=== PATIENT | male | born 1975 | race Hispanic/Latino ===

== ENCOUNTER 2017-03-15 17:02 | Emergency (ER) | payer OTHER ==
[2017-03-15 18:04] LABS: Basophils # (Auto) 0.1 K/mm3 (0.0-0.1); Basophils % (Auto) 0.5 % (0.0-1.8); Eosinophils % (Auto) 0.1 % (0.0-4.3); Hematocrit 43.4 % (35.5-45.6); Lymphocytes # (Auto) 1.2 K/mm3 (1.2-5.4); Lymphocytes % (Auto) 7.7 % (13.4-35.0); Mean Corpuscular HGB Conc 35 % (32-34); Mean Corpuscular Hemoglobin 32 pg (28-32); Mean Corpuscular Volume 93 fl (84-94); Monocytes # (Auto) 0.5 K/mm3 (0.0-0.8); Platelet Count 271 K/mm3 (140-440); Red Blood Count 4.67 M/mm3 (3.65-5.03); Red Cell Distribution Width 13.3 % (13.2-15.2)
[2017-03-15 18:25] LABS: Alanine Aminotransferase 22 units/L (7-56); Albumin 4.8 g/dL (3.9-5); BUN/Creatinine Ratio 23; Blood Urea Nitrogen 23 mg/dL (9-20); Calcium 9.8 mg/dL (8.4-10.2); Hemolysis Index 18
[2017-03-15 18:52] LABS: Bacteria,Urine 1+ /HPF (Negative); Bilirubin,Urine NEG (Negative); Blood,Urine MOD (Negative); Color,Urine Yellow (Yellow); Mucus,Urine FEW /HPF; Nitrite,Urine NEG (Negative); Urobilinogen,Urine < 2.0 mg/dL (<2.0)
[2017-03-16] MEDS ORDERED: TORADOL IV ONE (06:53)
[2017-03-16] MEDS ORDERED: ZOFRAN IV ONE (06:53)
[2017-03-16] MEDS ORDERED: NACL 0.9% 1000 ML 1,000 ML IV ONE (06:53)
--- NOTE | 2017-03-16 07:40 | Cat Scan Report ---
FINAL REPORT EXAM: CT ABDOMEN PELVIS WO CON HISTORY: left flank pain, hematuria TECHNIQUE: CT images obtained through the Abdomen and Pelvis without contrast. Transaxial,coronal and sagittal reformats are provided. PRIORS: None. FINDINGS: Imaged intrathoracic contents are unremarkable. Mild left hydronephrosis due to a 5 millimeter proximal ureteral obstructing stone on axial series 3, image 77. Nonobstructive nephrolithiasis measures up to 3 millimeters in the left collecting system and 2 millimeters in the right collecting system. No right hydroureteronephrosis. No stones within or near the urinary bladder. Pelvic phleboliths are noted. Partially exophytic hypodense left hepatic mass on axial series 3, image 31 measures up to 6.2 cm. Similar in attenuation in the peripheral right hepatic lobe on axial image 56 there is a 3.5 centimeter mass. The gallbladder, pancreas, spleen, and adrenal glands demonstrate a normal noncontrast appearance. Hollow enteric organs are normal in course and caliber. Appendix is normal. Sigmoid diverticulosis without surrounding inflammatory findings. No intra-abdominal free air/fluid or lymphadenopathy. Aorta is normal in course and caliber. Superficial soft tissues are unremarkable. No acute or aggressive appearing skeletal findings. IMPRESSION: Moderate left hydronephrosis due to a proximal ureteral obstructing stone measuring up to 5 millimeters. There are additional nonobstructive stones in the right and left collecting system measuring up to 3 millimeters as detailed above. Indeterminate right and left hepatic masses measuring up to 3.5 cm and 6.2 cm, respectively. Differential diagnosis includes both benign and malignant entities. Follow-up routine MRI with contrast is recommended for further evaluation. Notification initiated via [employer] sales support coordinator immediately following this dictation on 03/16/2017.
--- NOTE | 2017-03-16 08:11 | Emergency Department Report ---
ED Abdominal Pain HPI - General Chief Complaint: Abdominal Pain Stated Complaint: FLANK PAIN Time Seen by Provider: 03/16/17 06:49 Source: patient, family Mode of arrival: Stretcher Limitations: No Limitations - History of Present Illness Initial Comments: 41-year-old male with a past medical history of hypertension presents to the ED with complaints of left flank pain 2 weeks. Pain is described as intermittent , sharp, moderate in intensity. Patient became severe yesterday causing him to fall to the floor with associated nausea and one episode of vomiting. Patient denies dysuria, hematuria, or fever. Denies previous history of passing a kidney stone but was informed he did have a stone in his kidney on previous imaging studies. Patient takes Naprosyn for chronic left knee arthritis Severity scale (0 -10): 7 - Related Data Previous Rx's Medication Instructions Recorded Last Taken Type Ondansetron [Zofran Odt] 4 mg PO Q8HR PRN #20 tab.rapdis 03/16/17 Unknown Rx Tamsulosin [Flomax] 0.4 mg PO QDAY #7 cap 03/16/17 Unknown Rx traMADol [Ultram 50 MG tab] 50 mg PO Q6HR PRN #20 tablet 03/16/17 Unknown Rx Allergies Allergy/AdvReac Type Severity Reaction Status Date / Time hydrocodone Allergy Unknown Verified 03/15/17 17:41 ED Review of Systems ROS: Stated complaint: FLANK PAIN Other details as noted in HPI Comment: All other systems reviewed and negative Other: Constitutional: No fevers chills Eyes: No eye pain visual changes ENT: No ear pain or throat pain Neck: Denies pain Respiratory: Denies cough wheezing shortness of breath Cardiovascular: Denies chest pain, palpitations, syncope GI: As per HPI : Denies dysuria Musculoskeletal: Denies back pain, joint swelling Skin: Denies rash, lesions, erythema Neurologic: Denies headache, numbness, weakness Psychiatric: Denies suicidal ideation, hallucinations ED Past Medical Hx - Past Medical History Hx Hypertension: Yes - Medications Home Medications: Home Medications Medication Instructions Recorded Confirmed Last Taken Type Ondansetron [Zofran Odt] 4 mg PO Q8HR PRN #20 tab.rapdis 03/16/17 Unknown Rx Tamsulosin [Flomax] 0.4 mg PO QDAY #7 cap 03/16/17 Unknown Rx traMADol [Ultram 50 MG tab] 50 mg PO Q6HR PRN #20 tablet 03/16/17 Unknown Rx ED Physical Exam - General Limitations: No Limitations - Other Other exam information: General: No limitations, patient is alert in no acute distress Head exam: Atraumatic, normocephalic Eyes exam: Normal appearance ENT: Moist mucous membrane, normal oropharynx Neck exam: Normal inspection, full range of motion, no meningismus nontender Respiratory exam: Clear to auscultation bilateral, no wheezes, rales, crackles Cardiovascular: Normal rate and rhythm, normal heart sounds Abdomen: Soft, nondistended, and nontender, with normal bowel sounds, no rebound, or guarding Extremity: Full range of motion, left knee lateral bony protrusion that is chronic as per patient Back: Normal Inspection, full range of motion, mild left flank tenderness Neurologic: Alert, oriented x3, cranial nerves intact, no motor or sensory deficit Psychiatric: normal affect, normal mood Skin: Warm, dry, intact ED Course Vital Signs 03/15/17 03/16/17 03/16/17 17:35 01:01 05:57 Temperature 97.3 F L 97.8 F Pulse Rate 83 64 Respiratory 16 18 Rate Blood Pressure 122/74 124/81 137/72 O2 Sat by Pulse 99 100 Oximetry 03/16/17 03/16/17 03/16/17 06:00 06:21 06:40 Temperature Pulse Rate Respiratory Rate Blood Pressure 130/81 127/76 120/72 O2 Sat by Pulse Oximetry 03/16/17 06:42 Temperature Pulse Rate Respiratory 20 Rate Blood Pressure O2 Sat by Pulse 98 Oximetry - Reevaluation(s) Reevaluation #1: 03/16/17 08:12 Patient received Toradol, Zofran, and no masses Reevaluation #2: 03/16/17 10:15 Patient observed after receiving tramadol and no allergic reaction noted. - Consultations Consultation #1: 03/16/17 08:[address] Alex on-call urologist. Recommend patient to come to the office today after discharge for evaluation ED Medical Decision Making - Lab Data Result diagrams: 03/15/17 17:46 03/15/17 17:46 Lab Results 03/15/17 03/15/17 03/15/17 Range/Units 17:46 17:46 18:05 WBC 15.5 H (4.5-11.0) K/mm3 RBC 4.67 (3.65-5.03) M/mm3 Hgb 15.0 (11.8-15.2) gm/dl Hct 43.4 (35.5-45.6) % MCV 93 (84-94) fl MCH 32 (28-32) pg MCHC 35 H (32-34) % RDW 13.3 (13.2-15.2) % Plt Count 271 (140-440) K/mm3 Lymph % (Auto) 7.7 L (13.4-35.0) % [place] % (Auto) 3.0 (0.0-7.3) % Eos % (Auto) 0.1 (0.0-4.3) % Baso % (Auto) 0.5 (0.0-1.8) % Lymph # 1.2 (1.2-5.4) K/mm3 [place] # 0.5 (0.0-0.8) K/mm3 Eos # 0.0 (0.0-0.4) K/mm3 Baso # 0.1 (0.0-0.1) K/mm3 Seg Neutrophils % 88.7 H (40.0-70.0) % Seg Neutrophils # 13.7 H (1.8-7.7) K/mm3 Sodium 140 (137-145) mmol/L Potassium 3.7 (3.6-5.0) mmol/L Chloride 100.4 (98-107) mmol/L Carbon Dioxide 23 (22-30) mmol/L Anion Gap 20 mmol/L BUN 23 H (9-20) mg/dL Creatinine 1.0 (0.8-1.5) mg/dL Estimated GFR > 60 ml/min BUN/Creatinine Ratio 23 % Glucose 106 H (75-100) mg/dL Calcium 9.8 (8.4-10.2) mg/dL Total Bilirubin 0.20 (0.1-1.2) mg/dL AST 15 (5-40) units/L ALT 22 (7-56) units/L Alkaline Phosphatase 70 (35-129) units/L Total Protein 7.0 (6.3-8.2) g/dL Albumin 4.8 (3.9-5) g/dL Albumin/Globulin Ratio 2.2 % Urine Color Yellow (Yellow) Urine Turbidity Clear (Clear) Urine pH 7.0 (5.0-7.0) Ur Specific [place] 1.024 (1.003-1.030) Urine Protein 30 mg/dl (Negative) mg/dL Urine Glucose (UA) Neg (Negative) mg/dL Urine Ketones Neg (Negative) mg/dL Urine Blood Mod (Negative) Urine Nitrite Neg (Negative) Urine Bilirubin Neg (Negative) Urine Urobilinogen < 2.0 (<2.0) mg/dL Ur Leukocyte Esterase Neg (Negative) Urine WBC (Auto) 3.0 (0.0-6.0) /HPF Urine RBC (Auto) 34.0 (0.0-6.0) /HPF Urine Bacteria (Auto) 1+ (Negative) /HPF Urine Mucus Few /HPF - Radiology Data Radiology results: report reviewed CT abdomen and pelvis noncontrast clear to moderate left hydronephrosis due to proximal ureteral obstructing stone measuring up to 5 mm. There is additional nonobstructive stones in the right and left collecting system measuring up to 3 mm. Indeterminate right left hepatic masses measuring 2.5 cm and 6.2 cm respectively. - Medical Decision Making Patient states he is allergic to hydrocodone because he took it for dental work he broke out in a sweat. He denies hives, rash, or difficulty breathing. Patient artery takes - Differential Diagnosis renal colic, UTI, diverticulitis Critical Care Time: No Critical care attestation.: If time is entered above; I have spent that time in minutes in the direct care of this critically ill patient, excluding procedure time. ED Disposition Clinical Impression: Renal colic on left side, Hydronephrosis, Bilateral nephrolithiasis Disposition: DC-01 TO HOME OR SELFCARE Is pt being admited?: No Condition: Stable Instructions: Renal Colic (ED), How to Strain Your Urine (ED), Kidney Stones ( ED) Additional Instructions: Take the medication as needed for pain. Continue Naprosyn in addition to tramadol. Follow up with the urologist today upon discharge. Return is symptoms worsen as indicated by discharge instructions Prescriptions: Ondansetron [Zofran Odt] 4 mg PO Q8HR PRN #20 tab.rapdis PRN Reason: Nausea And Vomiting Tamsulosin [Flomax] 0.4 mg PO QDAY #7 cap traMADol [Ultram 50 MG tab] 50 mg PO Q6HR PRN #20 tablet PRN Reason: Pain Referrals: CYNDY BARBER MD [Staff Physician] - 03/16/17 Time of Disposition: 10:17
[2017-03-16] MEDS ORDERED: ULTRAM PO ONE (08:42)
[2017-03-16 10:49] VITALS: BP 126/81
== END 2017-03-16 10:50 | disposition home or self-care (01) ==
LOC: ED 17:02
DX: N13.2 Hydronephrosis with renal and ureteral calculous obstruction (principal); I10 Essential (primary) hypertension; Z88.5 Allergy status to narcotic agent
CPT/HCPCS: 36415; 74176; 80053; 81001; 85025; 96361; 96374; 96375; 99284; J1885; J2405; J7030

== ENCOUNTER 2017-03-23 13:58 | Day surgery (SDC) | payer OTHER ==
[~2017-03-23 13:58] MED LIST: NACL 0.9% 1000 ML 1,000 ML IV SCH; PEPCID PO NR; VERSED IV NR
[2017-03-23] MEDS ORDERED: ANCEF/STERILE WATER 2 GM/20 ML IV NR (14:20)
[2017-03-23] MEDS ORDERED: PERCOCET 5/325 PO PRN (14:51)
[2017-03-23] MEDS ORDERED: MORPHINE IV PRN (14:51)
[2017-03-23] MEDS ORDERED: ZOFRAN IV PRN (14:51)
--- NOTE | 2017-03-23 14:51 | Anesthesia Consultation ---
Anesthesia Consult and Med Hx Date of service: 03/23/17 - Airway Anesthetic Teeth Evaluation: Good ROM Head & Neck: Adequate Mental/Hyoid Distance: Adequate Mallampati Class: Class II Intubation Access Assessment: Probably Good - Pulmonary Exam CTA: Yes - Cardiac Exam Cardiac Exam: RRR - Pre-Operative Health Status ASA Pre-Surgery Classification: ASA2 Proposed Anesthetic Plan: General - Pulmonary Hx Smoking: Yes (quit over 20 years ago) - Cardiovascular System Hx Hypertension: Yes - Central Nervous System Hx Back Pain: Yes (FROM STONE)
--- NOTE | 2017-03-23 14:51 | Anesthesia Day of Surgery ---
Anesthesia Day of Surgery - Day of Surgery Patient Examined: Yes Patient is NPO: Yes
[2017-03-23] MEDS ORDERED: NACL BACTERIOSTATIC INFILTRATI ONE (15:15)
[2017-03-23] MEDS ORDERED: DILAUDID ONE (15:43)
[2017-03-23] MEDS ORDERED: DIPRIVAN 10 MG/ML IV ONE (15:43)
[2017-03-23] MEDS ORDERED: XYLOCAINE MPF 2% ONE (15:45)
[2017-03-23] MEDS ORDERED: DECADRON ONE (16:16)
[2017-03-23] MEDS ORDERED: TORADOL ONE (16:17)
[2017-03-23] MEDS ORDERED: PEPCID IV NR (17:00)
--- NOTE | 2017-03-23 17:05 | Short Stay Summary ---
Short Stay Documentation Date of service: 03/23/17 - History H&P: obtained from office - Allergies and Medications Current Medications: Allergies hydrocodone Allergy (Verified 03/22/17 13:16) SWEATING ondansetron Adverse Reaction (Verified 03/23/17 15:00) Unknown PT REPORTS ZOFRAN CAUSED PALPITATIONS AND VOMITTING. Home Medications Medication Instructions Recorded Confirmed Last Taken Type Tamsulosin [Flomax] 0.4 mg PO QDAY #7 cap 03/16/17 03/23/17 03/22/17 Rx traMADol [Ultram 50 MG tab] 50 mg PO Q6HR PRN #20 tablet 03/16/17 03/23/1703/22 Rx Enalapril Maleate [Vasotec] 20 mg PO DAILY 03/22/17 03/23/17 03/23/17 05:00 History hydrALAZINE [Apresoline] 25 mg PO BID 03/22/17 03/23/17 03/23/17 05:00 History Oxycodone HCl/Acetaminophen 1 each PO Q6HR PRN 03/23/17 03/23/17 03/23/17 12:00 History [Percocet 7.5/325 mg] Active Medications Cefazolin Sodium (Ancef/Sterile Water 2 Gm/20 Ml) 2 gm IV PREOP NR Stop: 03/23/17 23:59 Famotidine (Pepcid) 20 mg IV PREOP NR Stop: 03/23/17 23:00 Sodium Chloride (Nacl 0.9% 1000 Ml) 1,000 mls @ 75 mls/hr IV DIRECT FLOR Last Admin: 03/23/17 15:25 Dose: 75 mls/hr Midazolam HCl (Versed) 2 mg IV PREOP NR Stop: 03/23/17 23:59 Last Admin: 03/23/17 15:31 Dose: 2 mg Morphine Sulfate (Morphine) 2 mg IV Q10MIN PRN PRN Reason: Pain, Moderate (4-6) Oxycodone/Acetaminophen (Percocet 5/325) 1 tab PO ONCE PRN PRN Reason: Pain, Moderate (4-6) - Brief post op/procedure progress note Date of procedure: 03/23/17 Pre-op diagnosis: left upj stone Post-op diagnosis: same Procedure: eswl Anesthesia: GETA Surgeon: MATTHEW MIRZA Estimated blood loss: none Condition: stable - Hospital course Hospital course: percocet 7.5,flomax,post op info - Disposition Condition at discharge: Stable Disposition: DC-01 TO HOME OR SELFCARE Short Stay Discharge Plan Follow up with: MAK CUEVAS MD [Primary Care Provider] - 7 Days
[2017-03-23 17:51] VITALS: BP 137/83
--- NOTE | 2017-03-23 18:15 | Post Anesthesia Evaluation ---
- Post Anesthesia Evaluation Patient Participated: Yes Airway Patent: Yes Stable Respiratory Function: Yes Nausea/Vomiting: No Temp > 96.8F: Yes Pain Manageable: Yes Adequeate Hydration: Yes Anesthesia Complications: No Block Receding Appropriately: Not Applicable Patient on Ventilator: No
--- NOTE | 2017-03-23 19:20 | Operative Report ---
PREOPERATIVE DIAGNOSIS: Left ureteropelvic junction stone (UPJ) -- 7 mm. POSTOPERATIVE DIAGNOSES: Left ureteropelvic junction stone (UPJ) -- 7 mm. PROCEDURE: Left extracorporal shock wave lithotripsy. SURGEON: Anastacio Rosa MD. ANESTHESIA: General. ESTIMATED BLOOD LOSS: Minimal. FLUIDS: Crystalloid. COMPLICATIONS: No complications. INDICATIONS: This patient is a 41-year-old gentleman seen by Dr. Welch in the office with left flank pain. CT abdomen and pelvis revealed a 7 mm stone. He presents now for lithotripsy. DESCRIPTION OF PROCEDURE: The patient was taken to the operative suite, placed in a supine position. After adequate general anesthesia, his stone was localized in 2 planes using fluoroscopy at the ureteropelvic junction proximal ureter. Extracorporal shock wave lithotripsy was administered with a maximum kV of 6 and 2500 shocks. Adequate fragmentation could be appreciated. The patient tolerated the procedure well and was extubated and taken to recovery room in stable condition. He will go home on Percocet 7.5 and Flomax. Follow up in the office. JOB# [id number] SONG/SUGEY
== END 2017-03-23 13:59 | disposition home or self-care (01) ==
LOC: OR 13:58
PROVIDERS: ATTEND Urology
DX: N20.0 Calculus of kidney (principal); I10 Essential (primary) hypertension; Z98.890 Other specified postprocedural states
CPT/HCPCS: 50590; J0690; J1100; J1170; J2250; J2704; J7030; J1885